=== PATIENT | female | born 1955 | race Caucasian/White ===

== ENCOUNTER → 2017-04-06 | Outpatient (CLI) | payer OTHER ==
--- NOTE | 2017-04-06 19:08 | WOMENS IMAGING REPORT ---
EXAM DESCRIPTION: BILAT SCREENING MAMMO W/CAD COMPLETED DATE/TIME: 04/06/2017 8:01 am REASON FOR STUDY: SCREENING MAMMO Z12.31 ENCNTR SCREEN MAMMOGRAM FOR MALIGNANT NEOPLASM OF IRISH COMPARISON: Multiple since 2008 TECHNIQUE: Standard craniocaudal and mediolateral oblique views of each breast recorded using digita l acquisition. LIMITATIONS: None. FINDINGS: No masses, calcifications or architectural distortion. No areas of suspicion. Read with the assistance of CAD. .[facility] [place] - R2 Cenova Version 1.3 .[facility] - R2 Cenova Version 1.3 .[facility] - R2 Cenova Version 2.4 .[facility] [place] R2 Cenova Version 2.4 .[facility] - R2 Waterproofer Version 9.2 IMPRESSION: NORMAL MAMMOGRAM. BIRADS 1. BREAST DENSITY: a. The breasts are almost entirely fatty. BIRAD: 1 NEGATIVE RECOMMENDATION: ROUTINE SCREENING COMMENT: The patient has been notified of the results by letter per SA requirements. Additional no tification policies are in place for contacting patient with suspicious or incomplete findings. Quality ID #[id number]: The [employer] recommends an annual screening mammogram for women aged 40 years or over. This facility utilizes a reminder system to ensure that all patients receive reminder letters, and/or direct phone calls for appointments. This includes reminders for routine scr eening mammograms, diagnostic mammograms, or other Breast Imaging Interventions when appropriate. Th is patient will be placed in the appropriate reminder system. The [employer] (ACR) has developed recommendations for screening MRI of the breast s in certain patient populations, to be used in conjunction with mammography. Breast MRI surveillanc e may be appropriate for women with more than 20% lifetime risk of developing breast cancer as deter mined by genetic testing, significant family history of the disease, or history of mantle radiation f or Hodgkins Disease. ACR Practice Guidelines 2008. TECHNICAL DOCUMENTATION: FINDING NUMBER: (1) ASSESSMENT: (1) JOB ID: [id number] [employer]- All Rights Reserved
== END ==
LOC: WI 07:47
PROVIDERS: ATTEND Registered Nurse
DX: Z12.31 Encounter for screening mammogram for malignant neoplasm of breast (principal)
CPT/HCPCS: 77067; G0202

== ENCOUNTER → 2017-06-11 | Outpatient (CLI) | payer OTHER ==
--- NOTE | 2017-06-11 10:07 | WOMENS IMAGING REPORT ---
EXAM DESCRIPTION: TRANSVAGINAL ULTRASOUND COMPLETED DATE/TIME: 06/11/2017 8:30 am REASON FOR STUDY: ABNORMAL UTERINE AND VAGIAL BLEEDING,UNSPECIFIED;R93.9 N93.9 ABNORMAL UTERINE AND VAGINAL BLEEDING, UNSPECIFIED COMPARISON: None. TECHNIQUE: Dynamic and static grayscale images acquired of the pelvis via transvaginal approach and recorded on PACS. Additional selected color Doppler and spectral images recorded. LIMITATIONS: Pelvic bowel gas FINDINGS: UTERUS: Contour normal. No mass. Uterus is 7 x 4 x 2 cm in size. ENDOMETRIAL STRIPE: No focal or generalized thickening. No masses. Endometrial stripe less than 2 mm in thickness CERVIX: No nabothian cysts. RIGHT OVARY: Not visualized RIGHT OVARY DOPPLER: Not performed LEFT OVARY: Not visualized LEFT OVARY DOPPLER: Not performed FREE FLUID: None noted. OTHER: No other significant finding. IMPRESSION: Normal size uterus. Endometrial stripe 2 mm in thickness without gross evidence of mass or polyp. Ovaries not visualized due to adnexal bowel gas TECHNICAL DOCUMENTATION: JOB ID: [id number] [employer]- All Rights Reserved
== END ==
LOC: WI 07:34
PROVIDERS: ATTEND Registered Nurse
DX: N93.9 Abnormal uterine and vaginal bleeding, unspecified (principal)
CPT/HCPCS: 76830

== ENCOUNTER → 2018-04-07 | Outpatient (CLI) | payer OTHER ==
--- NOTE | 2018-04-07 16:54 | WOMENS IMAGING REPORT ---
EXAM DESCRIPTION: BILAT SCREENING MAMMO W/CAD COMPLETED DATE/TIME: 04/07/2018 7:47 am REASON FOR STUDY: SCREENING MAMMO Z12.31 ENCNTR SCREEN MAMMOGRAM FOR MALIGNANT NEOPLASM OF IRISH COMPARISON: 2011 through 2016. TECHNIQUE: Standard craniocaudal and mediolateral oblique views of each breast recorded using digita l acquisition. LIMITATIONS: None. FINDINGS: Findings present which are benign by mammographic criteria. No suspicious masses, calcifi cations or architectural distortion. Pertinent benign findings: Benign calcifications. Read with the assistance of CAD. .[facility] - R2 Cenova Version 1.3 .[facility] Imaging - R2 Cenova Version 1.3 .[facility] - R2 Cenova Version 2.4 .[facility] Cenova Version 2.4 .[facility] - R2 Automatic Mold Sander Version 9.2 Benign mammographic findings may include one or more of the following: Smooth masses, popcorn/rim/co arse calcifications, asymmetries, post-procedure changes, and lesions with long-standing stability. IMPRESSION: BENIGN MAMMOGRAPHIC FINDINGS. BIRADS 2 BREAST DENSITY: a. The breasts are almost entirely fatty. BIRAD: 2 BENIGN FINDING(S) RECOMMENDATION: ROUTINE SCREENING COMMENT: The patient has been notified of the results by letter per SA requirements. Additional no tification policies are in place for contacting patient with suspicious or incomplete findings. Quality ID #[id number]: [employer] recommends an annual screening mammogram for women aged 40 years or over. This facility utilizes a reminder system to ensure that all patients receive reminder letters, and/or direct phone calls for appointments. This includes reminders for routine scr eening mammograms, diagnostic mammograms, or other Breast Imaging Interventions when appropriate. Th is patient will be placed in the appropriate reminder system. The [employer] (ACR) has developed recommendations for screening MRI of the breast s in certain patient populations, to be used in conjunction with mammography. Breast MRI surveillanc e may be appropriate for women with more than 20% lifetime risk of developing breast cancer as deter mined by genetic testing, significant family history of the disease, or history of mantle radiation f or Hodgkins Disease. ACR Practice Guidelines 2008. TECHNICAL DOCUMENTATION: FINDING NUMBER: (1) ASSESSMENT: (1) JOB ID: [id number] [employer]- All Rights Reserved Reading location - IP/workstation name: [email or web address]
== END ==
LOC: WI 06:51
PROVIDERS: ATTEND Registered Nurse
DX: Z12.31 Encounter for screening mammogram for malignant neoplasm of breast (principal)
CPT/HCPCS: 77067

== ENCOUNTER → 2019-04-14 | Outpatient (CLI) | payer OTHER ==
--- NOTE | 2019-04-14 09:12 | WOMENS IMAGING REPORT ---
EXAM DESCRIPTION: BILAT SCREENING MAMMO W/CAD COMPLETED DATE/TIME: 04/14/2019 8:08 am REASON FOR STUDY: ROUTINE BILATERAL SCREENING;Z12.31 Z12.31 ENCNTR SCREEN MAMMOGRAM FOR MALIGNANT N EOPLASM OF IRISH COMPARISON: 04/07/2018 and 04/06/2017. EXAM PARAMETERS: Standard craniocaudal and mediolateral oblique views of each breast recorded using digital acquisition. Read with the assistance of CAD. .[facility] - Artwardly Pool Attendant Version 9.2 LIMITATIONS: None. FINDINGS: No suspicious masses, suspicious calcifications or architectural distortion. No areas of c oncern. IMPRESSION: Negative MAMMOGRAM. BIRADS 1 BREAST DENSITY: a. The breasts are almost entirely fatty. BIRAD: ASSESSMENT: 1 NEGATIVE RECOMMENDATION: ROUTINE SCREENING COMMENT: The patient has been notified of the results by letter per MQSA requirements. Additional no tification policies are in place for contacting patient with suspicious or incomplete findings. Quality ID #[id number]: The [employer] recommends an annual screening mammogram for women aged 40 years or over. This facility utilizes a reminder system to ensure that all patients receive reminder letters, and/or direct phone calls for appointments. This includes reminders for routine scr eening mammograms, diagnostic mammograms, or other Breast Imaging Interventions when appropriate. Th is patient will be placed in the appropriate reminder system. TECHNICAL DOCUMENTATION: FINDING NUMBER: (1) ASSESSMENT: (1) JOB ID: [id number] [employer]- All Rights Reserved Reading location - IP/workstation name: [email or web address]
== END ==
LOC: WI 07:36
PROVIDERS: ATTEND Registered Nurse
DX: Z12.31 Encounter for screening mammogram for malignant neoplasm of breast (principal)
CPT/HCPCS: 77067

== ENCOUNTER → 2020-04-30 | Outpatient (CLI) | payer MEDICARE, OTHER ==
--- NOTE | 2020-05-01 11:19 | WOMENS IMAGING REPORT ---
EXAM DESCRIPTION: BILAT SCREENING MAMMO W/CAD IMAGES COMPLETED DATE/TIME: 04/30/2020 11:17 am REASON FOR STUDY: Z12.31 ENCOUNTER FOR SCREENING MAMMOGRAM FOR MALIGNANT NEOPLASM OF BREAST Z12.31 ENCNTR SCREEN MAMMOGRAM FOR MALIGNANT NEOPLASM OF IRISH COMPARISON: 04/14/2019 and 04/07/2018. EXAM PARAMETERS: Standard craniocaudal and mediolateral oblique views of each breast recorded using digital acquisition. Read with the assistance of CAD. .[facility] - R2 Senior Web Designer Version 9.2 LIMITATIONS: None. FINDINGS: No suspicious masses, suspicious calcifications or architectural distortion. No areas of c oncern. IMPRESSION: NEGATIVE MAMMOGRAM. BIRADS 1 BREAST DENSITY: a. The breasts are almost entirely fatty. BIRAD: ASSESSMENT: 1 NEGATIVE RECOMMENDATION: ROUTINE SCREENING COMMENT: The patient has been notified of the results by letter per MQSA requirements. Additional no tification policies are in place for contacting patient with suspicious or incomplete findings. Quality ID #[id number]: The [employer] recommends an annual screening mammogram for women aged 40 years or over. This facility utilizes a reminder system to ensure that all patients receive reminder letters, and/or direct phone calls for appointments. This includes reminders for routine scr eening mammograms, diagnostic mammograms, or other Breast Imaging Interventions when appropriate. Th is patient will be placed in the appropriate reminder system. TECHNICAL DOCUMENTATION: FINDING NUMBER: (1) ASSESSMENT: (1) JOB ID: [id number] 2010 [employer]- All Rights Reserved Reading location - IP/workstation name: [email or web address]
== END ==
LOC: WI 10:45
PROVIDERS: ATTEND Registered Nurse
DX: Z12.31 Encounter for screening mammogram for malignant neoplasm of breast (principal)
CPT/HCPCS: 77067